=== PATIENT | male | born 1980 | race Caucasian/White ===

== ENCOUNTER 2017-02-20 13:44 | Day surgery (SDC) | payer BC ==
[~2017-02-20] VITALS: Ht 180.3 cm; Wt 65.8 kg
[~2017-02-20 13:44] MED LIST: ALL DAY ALLERGY10 M3 PO; COLACE100 MG PO; TYLENOL PM1 CAPLET PO
[2017-02-20 14:24] VITALS: BP 110/60
[2017-02-20] MEDS ORDERED: NORCO 5/3251 TABLET PO (17:03)
[2017-02-20 18:25] VITALS: BP 162/81
[2017-02-20 18:50] VITALS: BP 148/64
== END 2017-02-20 19:00 | disposition home or self-care (01) ==
LOC: SDC 13:44
PROC: 06LY0CC Occlusion of Hemorrhoidal Plexus with Extraluminal Device, Open Approach (ICD-10-PCS; principal; 2017-02-20)
DX: K64.8 Other hemorrhoids (principal); K64.4 Residual hemorrhoidal skin tags; J30.9 Allergic rhinitis, unspecified; F17.200 Nicotine dependence, unspecified, uncomplicated
CPT/HCPCS: 93005; J0131; J1100; J1170; J2250; J2405; J3010; S0020